=== PATIENT | female | born 1935 | race Caucasian/White ===

== ENCOUNTER 2021-02-11 20:15 | Emergency (ER) | payer MEDICARE ==
--- NOTE | 2021-02-11 20:34 | ERPHSYRPT ---
- History of Present Illness Time Seen by Provider: 02/11/21 20:34 Allergies/Adverse Reactions: orlistat Allergy (Unknown, Verified 03/08/21 00:51) pentazocine Allergy (Unknown, Verified 03/08/21 00:51) tolmetin Allergy (Unknown, Verified 03/08/21 00:51) Home Medications: Acetaminophen 325 mg [Tylenol 325 mg] 650 mg PO Q4H PRN PRN 03/07/21 [History] Albuterol/Ipratropium 3ml Neb* [DUONEB 0.5-3 MG/3 ml Neb] 3 ml IH Q6H PRN PRN 03/07/21 [History] Atorvastatin Calcium [Lipitor] 20 mg PO HS 03/07/21 [History] Collagenase Oint [Santyl OINTMENT] 1 gm TOP DAILY 03/07/21 [History] Docusate Sodium 100 mg [Colace 100 MG] 100 mg PO BIDPRN PRN 03/07/21 [History] Famotidine [Pepcid] 40 mg PO HS 03/07/21 [History] Furosemide 40 mg [Lasix 40 MG] 40 mg PO BID 03/07/21 [History] Gabapentin 300 mg [Neurontin 300 mg] 300 mg PO HS 03/07/21 [History] Levothyroxine Sodium 175 mcg PO DAILY 03/07/21 [History] Lisinopril 5 mg [Zestril 5 MG] 5 mg PO DAILY 03/07/21 [History] Metoprolol Succinate 25 mg Xl* [Toprol-Xl 25MG Tablets] 25 mg PO BID 03/07/21 [History] Neomy Sulf/Bacitra/Polymyxin * [Triple Antibiotic Ointment] 1 gm TOP DAILY 03/07/21 [History] Sertraline HCl 25 mg PO HS 03/07/21 [History] Sodium Hypochlorite [Dakin's] 1 applic TOP DAILY 03/07/21 [History] Sulfamethoxazole/Trimethoprim [Sulfamethoxazole-Tmp Ds Tablet] 1 each PO BID 03/07/21 [History] Warfarin Sodium 2 mg PO DAILY 03/07/21 [History] dilTIAZem HCL [Diltiazem 24Hr ER (Xr)] 240 mg PO DAILY 03/07/21 [History] polyethylene glycoL 3350 [Gavilax] 17 gm PO DAILY PRN PRN 03/07/21 [History] - Departure Referrals: ANNE SILVA MD [Primary Care Provider] -
== END 2021-02-11 21:20 | disposition left against medical advice (07) ==
LOC: ED 20:15
DX: Z53.9 Procedure and treatment not carried out, unspecified reason (principal)

== ENCOUNTER 2021-02-12 14:17 | Emergency (ER) | payer MEDICARE, OTHER ==
[2021-02-12] MEDS ORDERED: Sodium Chloride 0.9% 1000 ML 1,000 ML IV SCH (14:30)
[2021-02-12 14:52] LABS: Absolute Neutrophil Ct (ANC) 14.01 (1.4-6.9); BASOPHIL % 0.1 % (0.0-0.4); Basophil (Absolute #) 0.02 (0-0.4); Eosinophil (Absolute #) 0 (0-0.5); Hematocrit 42.6 % (35-47); Hemoglobin 13.3 gm/dl (12.0-16.0); Lymphocyte (Absolute #) 0.57 (1.0-4.6); Lymphocytes % 3.6 % (24.0-44.0); Mean Cell Volume 93.4 fl (78-100); Mean Corpuscular Hemoglobin 29.2 pg (26-32); Mean Corpuscular Hgb Concent. 31.2 g/dl (32-36); Mean Platelet Volume 10.5 fl (7.5-11.0); Monocytes % 8.2 % (0.0-12.0); Neutrophil % 88.1 % (36.0-66.0); Platelet Count 275 K/mm3 (150-450); Red Blood Count 4.56 M/mm3 (4.1-5.4); Red Cell Distribution Width 13.2 % (11.5-14.0); White Blood Count 15.9 K/mm3 (4.0-10.5)
[2021-02-12 15:06] LABS: INR 3.9 (0.8-3.0)
[2021-02-12 15:11] LABS: ALKALINE PHOSPHATASE 113 U/L (38-126); ANION GAP 13.4 MEQ/L (5-15); BLOOD UREA NITROGEN 30 mg/dL (7-17); CHLORIDE 94 mmol/L (98-107); Calcium 11.1 mg/dL (8.4-10.2); Carbon Dioxide 28 mmol/L (22-30); Creatinine 1 0.58 mg/dL (0.52-1.04); EST GLOMERULAR FILTRATION RATE > 60.0 ML/MIN; Glucose 271 mg/dL (74-106); LIPASE 36 U/L (23-300); Potassium 4.6 mmol/L (3.5-5.1); SGOT/AST 26 U/L (14-36); SGPT/ALT 23 U/L (0-35); SODIUM 131 mmol/L (137-145); Total Protein 7.2 g/dL (6.3-8.2)
--- NOTE | 2021-02-12 15:20 | XRAY ---
Indication: Confusion. Altered mental status. Multiple contiguous axial images obtained through the head without contrast. Comparison: None Age-appropriate global atrophy and minimal periventricular degenerative micro-ischemia bilaterally. No acute intracranial hemorrhage, abnormal extra-axial fluid collection, or mass effect. Fourth ventricle is midline without hydrocephalus. Bony calvarium intact. Paranasal sinuses and mastoid air cells are clear. Impression: Nonacute senile brain.
--- NOTE | 2021-02-12 15:25 | XRAY ---
Indication: Confusion. Altered mental status. Comparison: None Portable chest underinflated with left base infiltrate/atelectasis/effusion and cardiomegaly concerning for cardiac decompensation/CHF. Incidental right base subsegmental atelectasis/scarring, osteopenia, marked degenerative changes both shoulders, and incompletely visualized thoracolumbar fusion hardware.
[2021-02-12] MEDS ORDERED: Zithromax 500 MG/ 250 ML NaCl Premix 500 MG/250 ML IVPB IV STA (15:48)
[2021-02-12] MEDS ORDERED: ROCEPHIN 2 Gm-D5w 50ML BAG** 2 G/50 ML IVPB IV STA (15:48)
[2021-02-12] MEDS ORDERED: Zithromax 500 MG/ 250 ML NaCl Premix 500 MG/250 ML IVPB IV ONE (16:04)
[2021-02-12] MEDS ORDERED: ROCEPHIN 2 Gm-D5w 50ML BAG** 2 G/50 ML IVPB IV ONE (16:04)
--- NOTE | 2021-02-12 16:10 | ERPHSYRPT ---
- History of Present Illness Time Seen by Provider: 02/12/21 14:21 Source: patient Exam Limitations: no limitations, clinical condition Patient Subjective Stated Complaint: PT HERE FOR CONFUSION, SHE WAS FOUND CONFUSED BY HER HOME HEALTH CARE NURSE,SHE STATES SHE JUST DOES NOT FEEL WELL Triage Nursing Assessment: PT ALERT, AND MOANS OUT IN PAIN WHEN YOU TOUCH HER, SHE HAS DRESSED WOUNDS TO RIGHT LEG AND BACK, SHE IS ALERT TO HER NAME AND B.D BUT CONFUSED TO DATE AND TIME, PT DENIES ANY INJURY, HER COUMADIN IS ON HOLD FOR A HIGH INR OF 3.7 Physician History: 85 years old female with history of atrial fibrillation on Coumadin/Cardizem, diabetes mellitus, hypothyroidism, hypertension presented in the ER with chief complaint of altered mental status and not acting herself since yesterday and is progressively worsening. Patient is baseline awake alert and oriented x4. On presentation patient is able to tell her name and date of and not more than that. She denies having pain anywhere. Not in any distress. No vomiting or diarrhea reported. No cough fever or chills reported. History is limited. Timing/Duration: yesterday, gradual onset, worse Severity: moderate Modifying Factors: Improves With: nothing Associated Symptoms: denies symptoms Allergies/Adverse Reactions: pentazocine Allergy (Verified 02/12/21 14:36) tolmetin Allergy (Verified 02/12/21 14:36) Travel Risk - International Travel Have you traveled outside of the country in past 3 weeks: No - Coronavirus Screening Are you exhibiting any of the following symptoms?: No - Vaccine Status Have you recieved a Covid-19 vaccination: Yes Shot Coat Tender: Unknown - Vaccination Dates Date of 2cond Vaccination (if applicable): ? Dates if Unknown: ? - Review of Systems All Other Systems: Unable due to condition - Past Medical History Pertinent Past Medical History: Yes Cardiac History: Arrhythmia, Coronary Artery Disease, Hypertension Endocrine Medical History: Diabetes Type II, Hypothyroidism - Past Surgical History Past Surgical History: Yes Musculoskeletal: Orthopedic Surgery Female Surgical History: Hysterectomy Other Surgical History: HIP RPLECED, KNEE REPLACED - Social History Smoking Status: Former smoker Exposure to second hand smoke: No Drug Use: none Patient Lives Alone: Yes - Female History Hx Last Menstrual Period: POST - Nursing Vital Signs Nursing Vital Signs: Initial Vital Signs Temperature 98.4 F 02/12/21 14:22 Pulse Rate 62 02/12/21 14:22 Respiratory Rate 20 02/12/21 14:22 Blood Pressure 124/55 02/12/21 14:22 O2 Sat by Pulse Oximetry 96 02/12/21 14:22 Pain Scale Pain Intensity 4 - Physical Exam General Appearance: no apparent distress, alert Eye Exam: PERRL/EOMI, eyes nml inspection Ears, Nose, Throat Exam: normal ENT inspection, TMs normal, pharynx normal, moist mucous membranes Neck Exam: normal inspection, supple, full range of motion Respiratory Exam: diminished breath sounds, crackles/rales, rhonchi, wheezing, No accessory muscle use Cardiovascular Exam: tachycardia, irregular Gastrointestinal/Abdomen Exam: soft, normal bowel sounds, No tenderness Back Exam: other (Pressure ulcers) Extremity Exam: normal inspection, normal range of motion, other (Wound covered with dressing) Neurologic Exam: alert, cooperative, 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, No oriented x 3, No normal mood/affect Skin Exam: normal color SpO2 Interpretation: normal SpO2: 96 O2 Delivery: Room Air - Course EKG Interpreted by Me: RATE ([id number]), A-fib, NORMAL AXIS, NORMAL INTERVALS, Non- specific ST Changes Ordered Tests: Active Orders 24 hr Category Date Time Status EKG-ER Only STAT Care 02/12/21 14:21 Active Rick [Catheter-[place] Rick] STAT Care 02/12/21 16:41 Active IV Insertion STAT Care 02/12/21 14:21 Active IV Insertion-2nd Peripheral STAT Care 02/12/21 16:22 Active NPO (ED) STAT Care 02/12/21 14:21 Active CHEST 1 VIEW (PORTABLE) Stat Exams 02/12/21 14:22 Completed HEAD WITHOUT CONTRAST [CT] Stat Exams 02/12/21 14:23 Completed BLOOD CULTURE Stat Lab 02/12/21 14:43 Received CBC W DIFF Stat Lab 02/12/21 14:21 Completed CK-Creatinine Phosphokinase Stat Lab 02/12/21 14:43 Completed CMP Stat Lab 02/12/21 14:43 Completed CULTURE,URINE Stat Lab 02/12/21 16:42 Received LIPASE Stat Lab 02/12/21 14:43 Completed Lactic Acid Stat Lab 02/12/21 14:40 Completed Lactic Acid Stat Lab 02/12/21 16:48 Received MAGNESIUM Stat Lab 02/12/21 14:43 Completed NT PRO BNP Stat Lab 02/12/21 14:43 Completed PROTIME WITH INR Stat Lab 02/12/21 14:43 Completed TROPONIN Q3H Lab 02/12/21 14:43 Completed TROPONIN Q3H Lab 02/12/21 17:30 Completed TROPONIN Q3H Lab 02/12/21 20:30 Ordered TROPONIN Q3H Lab 02/12/21 23:30 Ordered TROPONIN Q3H Lab 02/13/21 02:30 Ordered UA W/RFX UR CULTURE Stat Lab 02/12/21 16:42 Completed Transfer Order Routine Transfer 02/12/21 Ordered Medication Summary Generic Name Dose Route Start Last Admin Trade Name Freq PRN Reason Stop Dose Admin Sodium Chloride 1,000 mls @ 100 mls/hr 02/12/21 14:30 02/12/21 15:17 Sodium Chloride 0.9% 1000 Ml IV 03/14/21 14:29 100 mls/hr .Q10H VIVI Administration Diltiazem HCl 100 mls @ 5 mls/hr 02/12/21 16:14 02/12/21 16:31 Cardizem Drip 100 Mg/100 Ml D5w IV 03/14/21 16:13 5 mg/hr .Q20H PRN 5 mls/hr HEART RATE/ A-FIB Administration Protocol 5 MG/HR Discontinued Medications Generic Name Dose Route Start Last Admin Trade Name Freq PRN Reason Stop Dose Admin Ceftriaxone Sodium/Dextrose 2 g in 50 mls @ 100 mls/hr 02/12/21 15:48 02/12/21 16:42 Rocephin 2 Gm-D5w 50ml Bag IV 02/12/21 16:17 Infused STAT STA Infusion Azithromycin 500 mg in 250 mls @ 250 mls/hr 02/12/21 15:48 02/12/21 17:13 Zithromax 500 Mg/ 250 Ml Nacl Premix IV 02/12/21 16:47 Infused STAT STA Infusion Azithromycin Confirm 02/12/21 16:04 Zithromax 500 Mg/ 250 Ml Nacl Premix Administered 02/12/21 16:05 Dose 500 mg in 250 mls @ ud IV .STK-MED ONE Ceftriaxone Sodium/Dextrose Confirm 02/12/21 16:04 Rocephin 2 Gm-D5w 50ml Bag Administered 02/12/21 16:05 Dose 2 g in 50 mls @ ud IV .STK-MED ONE Insulin Human Regular 4 unit 02/12/21 16:13 02/12/21 16:31 Humulin R IV 02/12/21 16:14 4 unit STAT ONE Administration Insulin Human Regular Confirm 02/12/21 16:30 Humulin R Administered 02/12/21 16:31 Dose 4 unit .ROUTE .STK-MED ONE Lab/Rad Data: Laboratory Result Diagrams 02/12/21 14:21 02/12/21 14:43 Laboratory Results 02/12/21 02/12/21 02/12/21 Range/Units 17:49 17:30 16:42 WBC (4.0-10.5) K/mm3 RBC (4.1-5.4) M/mm3 Hgb (12.0-16.0) gm/dl Hct (35-47) % MCV (78-100) fl MCH (26-32) pg MCHC (32-36) g/dl RDW (11.5-14.0) % Plt Count (150-450) K/mm3 MPV (7.5-11.0) fl Gran % (36.0-66.0) % Eos # (Auto) (0-0.5) Absolute Lymphs (auto) (1.0-4.6) Absolute Monos (auto) (0.0-1.3) Lymphocytes % (24.0-44.0) % Monocytes % (0.0-12.0) % Eosinophils % (0.00-5.0) % Basophils % (0.0-0.4) % Absolute Granulocytes (1.4-6.9) Basophils # (0-0.4) PT (9.4-12.5) SECONDS INR (0.8-3.0) Sodium (137-145) mmol/L Potassium (3.5-5.1) mmol/L Chloride (98-107) mmol/L Carbon Dioxide (22-30) mmol/L Anion Gap (5-15) MEQ/L BUN (7-17) mg/dL Creatinine (0.52-1.04) mg/dL Estimated GFR ML/MIN Glucose (74-106) mg/dL Lactic Acid (0.4-2.0) Calcium (8.4-10.2) mg/dL Magnesium (1.6-2.3) mg/dL Total Bilirubin (0.2-1.3) mg/dL AST (14-36) U/L ALT (0-35) U/L Alkaline Phosphatase (38-126) U/L Creatine Kinase (30-135) U/L Troponin I < 0.012 (0.000-0.034) ng/mL NT-Pro-B Natriuret Pep (0-1800) pg/mL Serum Total Protein (6.3-8.2) g/dL Albumin (3.5-5.0) g/dL Lipase (23-300) U/L Urine Color MARYAN (YELLOW) Urine Appearance SLIGHTLY CLOUDY (CLEAR) Urine pH 6.0 (5-6) Ur Specific [place] 1.023 (1.005-1.025) Urine Protein 100 (Negative) Urine Ketones TRACE (NEGATIVE) Urine Blood MODERATE (0-5) Cosme/ul Urine Nitrite NEGATIVE (NEGATIVE) Urine Bilirubin NEGATIVE (NEGATIVE) Urine Urobilinogen 2 (0-1) mg/dL Ur Leukocyte Esterase NEGATIVE (NEGATIVE) Urine WBC (Auto) 3-5 (0-5) /HPF Urine RBC (Auto) 16-25 (0-2) /HPF U Epithel Cells (Auto) NONE (FEW) /HPF Urine Bacteria (Auto) NONE SEEN (NEGATIVE) /HPF Urine Mucus (Auto) MODERATE (NEGATIVE) /HPF Urine Culture Reflexed YES (NO) Urine Glucose 150 (NEGATIVE) mg/dL SARS-CoV-2 (PCR) NEGATIVE (NEGATIVE) 02/12/21 02/12/21 02/12/21 Range/Units 14:43 14:43 14:43 WBC (4.0-10.5) K/mm3 RBC (4.1-5.4) M/mm3 Hgb (12.0-16.0) gm/dl Hct (35-47) % MCV (78-100) fl MCH (26-32) pg MCHC (32-36) g/dl RDW (11.5-14.0) % Plt Count (150-450) K/mm3 MPV (7.5-11.0) fl Gran % (36.0-66.0) % Eos # (Auto) (0-0.5) Absolute Lymphs (auto) (1.0-4.6) Absolute Monos (auto) (0.0-1.3) Lymphocytes % (24.0-44.0) % Monocytes % (0.0-12.0) % Eosinophils % (0.00-5.0) % Basophils % (0.0-0.4) % Absolute Granulocytes (1.4-6.9) Basophils # (0-0.4) PT 46.0 H (9.4-12.5) SECONDS INR 3.90 H (0.8-3.0) Sodium 131 L (137-145) mmol/L Potassium 4.6 (3.5-5.1) mmol/L Chloride 94 L (98-107) mmol/L Carbon Dioxide 28 (22-30) mmol/L Anion Gap 13.4 (5-15) MEQ/L BUN 30 H (7-17) mg/dL Creatinine 0.58 (0.52-1.04) mg/dL Estimated GFR > 60.0 ML/MIN Glucose 271 H (74-106) mg/dL Lactic Acid (0.4-2.0) Calcium 11.1 H (8.4-10.2) mg/dL Magnesium 2.0 (1.6-2.3) mg/dL Total Bilirubin 0.60 (0.2-1.3) mg/dL AST 26 (14-36) U/L ALT 23 (0-35) U/L Alkaline Phosphatase 113 (38-126) U/L Creatine Kinase 63 (30-135) U/L Troponin I < 0.012 (0.000-0.034) ng/mL NT-Pro-B Natriuret Pep 2370 H (0-1800) pg/mL Serum Total Protein 7.2 (6.3-8.2) g/dL Albumin 4.0 (3.5-5.0) g/dL Lipase 36 (23-300) U/L Urine Color (YELLOW) Urine Appearance (CLEAR) Urine pH (5-6) Ur Specific [place] (1.005-1.025) Urine Protein (Negative) Urine Ketones (NEGATIVE) Urine Blood (0-5) Cosme/ul Urine Nitrite (NEGATIVE) Urine Bilirubin (NEGATIVE) Urine Urobilinogen (0-1) mg/dL Ur Leukocyte Esterase (NEGATIVE) Urine WBC (Auto) (0-5) /HPF Urine RBC (Auto) (0-2) /HPF U Epithel Cells (Auto) (FEW) /HPF Urine Bacteria (Auto) (NEGATIVE) /HPF Urine Mucus (Auto) (NEGATIVE) /HPF Urine Culture Reflexed (NO) Urine Glucose (NEGATIVE) mg/dL SARS-CoV-2 (PCR) (NEGATIVE) 02/12/21 02/12/21 Range/Units 14:40 14:21 WBC 15.9 H (4.0-10.5) K/mm3 RBC 4.56 (4.1-5.4) M/mm3 Hgb 13.3 (12.0-16.0) gm/dl Hct 42.6 (35-47) % MCV 93.4 (78-100) fl MCH 29.2 (26-32) pg MCHC 31.2 L (32-36) g/dl RDW 13.2 (11.5-14.0) % Plt Count 275 (150-450) K/mm3 MPV 10.5 (7.5-11.0) fl Gran % 88.1 H (36.0-66.0) % Eos # (Auto) 0 (0-0.5) Absolute Lymphs (auto) 0.57 L (1.0-4.6) Absolute Monos (auto) 1.30 (0.0-1.3) Lymphocytes % 3.6 L (24.0-44.0) % Monocytes % 8.2 (0.0-12.0) % Eosinophils % 0.0 (0.00-5.0) % Basophils % 0.1 (0.0-0.4) % Absolute Granulocytes 14.01 H (1.4-6.9) Basophils # 0.02 (0-0.4) PT (9.4-12.5) SECONDS INR (0.8-3.0) Sodium (137-145) mmol/L Potassium (3.5-5.1) mmol/L Chloride (98-107) mmol/L Carbon Dioxide (22-30) mmol/L Anion Gap (5-15) MEQ/L BUN (7-17) mg/dL Creatinine (0.52-1.04) mg/dL Estimated GFR ML/MIN Glucose (74-106) mg/dL Lactic Acid 2.4 H (0.4-2.0) Calcium (8.4-10.2) mg/dL Magnesium (1.6-2.3) mg/dL Total Bilirubin (0.2-1.3) mg/dL AST (14-36) U/L ALT (0-35) U/L Alkaline Phosphatase (38-126) U/L Creatine Kinase (30-135) U/L Troponin I (0.000-0.034) ng/mL NT-Pro-B Natriuret Pep (0-1800) pg/mL Serum Total Protein (6.3-8.2) g/dL Albumin (3.5-5.0) g/dL Lipase (23-300) U/L Urine Color (YELLOW) Urine Appearance (CLEAR) Urine pH (5-6) Ur Specific [place] (1.005-1.025) Urine Protein (Negative) Urine Ketones (NEGATIVE) Urine Blood (0-5) Cosme/ul Urine Nitrite (NEGATIVE) Urine Bilirubin (NEGATIVE) Urine Urobilinogen (0-1) mg/dL Ur Leukocyte Esterase (NEGATIVE) Urine WBC (Auto) (0-5) /HPF Urine RBC (Auto) (0-2) /HPF U Epithel Cells (Auto) (FEW) /HPF Urine Bacteria (Auto) (NEGATIVE) /HPF Urine Mucus (Auto) (NEGATIVE) /HPF Urine Culture Reflexed (NO) Urine Glucose (NEGATIVE) mg/dL SARS-CoV-2 (PCR) (NEGATIVE) - Progress Progress: unchanged Progress Note: 02/12/21 16:53 85 years old is evaluated for altered mental status. Patient does not tachypneic but tachycardic with A. fib RVR and mildly supratherapeutic INR. I have obtained CT head which is negative for any intracranial bleed, midline shift or mass-effect. Chest x-ray showed some infiltrative process versus CHF but patient does not seem clinically in CHF. She is maintaining oxygen satura tion at room air. She is given a dose of antibiotics. Blood cultures are pending. She is started on Cardizem drip for A. fib RVR. White count is elevated, chemistry profile consistent with mild dehydration and will gently hydrate her. Urinalysis is pending but it would be covered if she has UTI with Rocephin. Discussed with Dr. Silva, reviewed history, work-up and patient is being admitted to ICU. 02/12/21 20:47 Patient was initially admitted to ICU in here but later on it was found out that no ICU bed is available and recommended transfer. I have called transfer center [facility]. 02/12/21 21:[address] Dhaval Garcia hospitalist at [facility], reviewed history, work-up and current management, agreed with transfer. Discussed with : Alex Will see patient in: hospital (observation) Counseled pt/family regarding: lab results, diagnosis, rad results - Departure Departure Disposition: Transfer Clinical Impression: Atrial fibrillation with RVR, Elevated INR, Hyperglycemia Pneumonia Qualifiers: Pneumonia type: due to unspecified organism Laterality: unspecified laterality Lung location: unspecified part of lung Qualified Code(s): J18.9 - Pneumonia, unspecified organism Altered mental status Qualifiers: Altered mental status type: unspecified Qualified Code(s): R41.82 - Altered mental status, unspecified Condition: Stable Critical Care Time: Yes Critical Care Time(excluding separately billable procedures): Critical 30-74 mins Referrals: ANNE SILVA MD [Primary Care Provider] -
[2021-02-12] MEDS ORDERED: HUMULIN R IV ONE (16:13)
[2021-02-12] MEDS ORDERED: CARDIZEM DRIP 100 MG/100 ML D5W 100 ML IV PRN (16:14)
[2021-02-12] MEDS ORDERED: HUMULIN R ONE (16:30)
[2021-02-12] MEDS ORDERED: CARDIZEM DRIP 100 MG/100 ML D5W 100 ML IV ONE (16:30)
[2021-02-12 17:10] LABS: CK-Creatinine Phosphokinase 63 U/L (30-135); NT PRO BNP 2370 pg/mL (0-1800)
[2021-02-12 17:25] LABS: Appearance SLIGHTLY CLOUDY (CLEAR); Bilirubin NEGATIVE (NEGATIVE); Blood MODERATE Ery/ul (0-5); Glucose 150 mg/dL (NEGATIVE); Ketones TRACE (NEGATIVE); Leukocyte Esterase NEGATIVE (NEGATIVE); Mucus MODERATE /HPF (NEGATIVE); Nitrite NEGATIVE (NEGATIVE); Protein,Urine Dip 100 (Negative); Specific Gravity 1.023 (1.005-1.025); Urobilinogen 2 mg/dL (0-1)
[2021-02-12 17:26] LABS: Bacteria NONE SEEN /HPF (NEGATIVE)
[2021-02-12 22:08] VITALS: BP 124/71; PULSE 108; O2SAT 97
== END 2021-02-12 22:36 | disposition short-term general hospital (02) ==
LOC: ED 14:17
DX: I48.20 Chronic atrial fibrillation, unspecified (principal); R73.9 Hyperglycemia, unspecified; R97.1 Elevated cancer antigen 125 [CA 125]; Z79.891 Long term (current) use of opiate analgesic
CPT/HCPCS: 36000; 36415; 51702; 70450; 71045; 80053; 81001; 82550; 83605; 83690; 83735; 83880; 84484; 85025; 85610; 87040; 87077; 87086; 87186; 93005; 96365; 96367; 96374; 99285; 99291; U0003; J0456; J0696; J1815

== ENCOUNTER 2021-03-07 19:52 | Inpatient (IN) | payer MEDICARE, OTHER ==
--- NOTE | 2021-03-07 19:59 | ERPHSYRPT ---
- History of Present Illness Time Seen by Provider: 03/07/21 19:58 Source: patient, EMS, prison records, old records Exam Limitations: clinical condition Physician History: This is an 85-year-old white female patient who is a resident at [facility] and brought in by EMS to our emergency department because of dark stools that were noticed today. The patient has a history of chronic atrial fibrillation and is taking Coumadin and Cardizem for this. She also has diabetes, hypothyroidism, hypertension, coronary artery disease and dementia. On 02/12/2021, the patient's hemoglobin was 13.3. A repeat hemoglobin on 03/03/2021 was 11.5. Again, today the prison noticed dark stools. There is been no nausea or vomiting. Patient denies chest pain. Patient denies shortness of breath. On arrival, patient's heart rate is in the 60s and her systolic blood pressure is 97. Patient's niece is her medical power of cane piler and they are okay receiving blood products if necessary. If the patient is admitted to the hospital, the patient is a DNR. Timing/Duration: today Severity: mild (To moderate) Associated Symptoms: weakness, No nausea, No vomiting, No abdominal pain, No shortness of breath, No syncope Allergies/Adverse Reactions: orlistat Allergy (Unknown, Verified 03/07/21 20:30) pentazocine Allergy (Unknown, Verified 03/07/21 20:30) tolmetin Allergy (Unknown, Verified 03/07/21 20:30) Home Medications: Arginine/Ascorbate Sod/Roman AC [Arginaid Powder] 1 each PO BID 03/07/21 [History] Multivit,Calc,Mins/Iron/Folic [Therems-M Tablet] 1 each PO DAILY 03/07/21 [History] Sulfamethoxazole/Trimethoprim [Sulfamethoxazole-Tmp Ds Tablet] 1 each PO BID 03/07/21 [History] Warfarin Sodium 2 mg PO DAILY 03/07/21 [History] Travel Risk - International Travel Have you traveled outside of the country in past 3 weeks: No - Coronavirus Screening Are you exhibiting any of the following symptoms?: No Close contact with a COVID-19 positive Pt in past 14-21 Days: No - Vaccine Status Have you recieved a Covid-19 vaccination: Yes Mold Swabber: Unknown - Vaccination Dates Date of 2cond Vaccination (if applicable): ? Dates if Unknown: ? - Review of Systems Constitutional: Weakness Eyes: No Symptoms Ears, Nose, & Throat: No Symptoms Respiratory: No Symptoms Cardiac: No Symptoms Abdominal/Gastrointestinal: No Symptoms Genitourinary Symptoms: No Symptoms Musculoskeletal: No Symptoms Skin: No Symptoms Neurological: No Symptoms Psychological: No Symptoms Endocrine: No Symptoms Hematologic/Lymphatic: No Symptoms Immunological/Allergic: No Symptoms All Other Systems: Reviewed and Negative - Past Medical History Pertinent Past Medical History: Yes Cardiac History: Arrhythmia, Coronary Artery Disease, Hypertension Endocrine Medical History: Diabetes Type II, Hypothyroidism - Past Surgical History Past Surgical History: Yes Musculoskeletal: Orthopedic Surgery Female Surgical History: Hysterectomy Other Surgical History: HIP RPLECED, KNEE REPLACED - Social History Smoking Status: Former smoker Exposure to second hand smoke: No Drug Use: none Patient Lives Alone: Yes - Nursing Vital Signs Nursing Vital Signs: Initial Vital Signs Temperature 97.0 F 03/07/21 20:06 Pulse Rate 66 03/07/21 20:06 Respiratory Rate 16 03/07/21 20:06 Blood Pressure 97/58 03/07/21 20:06 O2 Sat by Pulse Oximetry 97 03/07/21 20:06 Pain Scale Pain Intensity 0 - Physical Exam General Appearance: no apparent distress, alert, lethargy Eye Exam: PERRL/EOMI, pale conjunctivae Ears, Nose, Throat Exam: TMs normal, dry mucous membranes Neck Exam: normal inspection, non-tender, supple, full range of motion Respiratory Exam: normal breath sounds, lungs clear, airway intact, No chest tenderness, No respiratory distress Cardiovascular Exam: normal peripheral pulses, irregular Gastrointestinal/Abdomen Exam: soft, normal bowel sounds, No tenderness Pelvic Exam: not done Rectal Exam: not done Back Exam: normal inspection, normal range of motion, No CVA tenderness, No vertebral tenderness Extremity Exam: normal inspection, normal range of motion, pelvis stable Neurologic Exam: alert, oriented x 3, cooperative, gunner's mate m II-XII nml as tested, normal mood/affect, nml cerebellar function, nml station & gait, sensation nml Skin Exam: pale Lymphatic Exam: No adenopathy SpO2 Interpretation: normal O2 Delivery: Room Air - Course Nursing assessment & vital signs reviewed: Yes EKG Interpreted by Me: RATE (63), A-fib, NORMAL AXIS, Other (No acute ischemic changes on today's EKG. When compared to EKG dated 02/12/2021, there is resolution of PVCs on today's EKG.) Ordered Tests: Active Orders 24 hr Category Date Time Status EKG-ER Only STAT Care 03/07/21 20:06 Active IV Insertion STAT Care 03/07/21 20:06 Active CBC W DIFF Stat Lab 03/07/21 20:13 Completed CMP Stat Lab 03/07/21 20:13 Completed CULTURE,URINE Stat Lab 03/07/21 21:25 Received Lactic Acid Stat Lab 03/07/21 20:06 Completed Manual Differential NC Stat Lab 03/07/21 20:13 Completed PROTIME WITH INR Stat Lab 03/07/21 20:13 Completed UA W/RFX UR CULTURE Stat Lab 03/07/21 21:25 Completed Transfer Order Routine Transfer 03/07/21 Ordered Medication Summary Generic Name Dose Route Start Last Admin Trade Name Freq PRN Reason Stop Dose Admin Ceftriaxone Sodium/Dextrose 1 g in 50 mls @ 100 mls/hr 03/07/21 21:47 Rocephin 1 Gm-D5w 50 Ml Bag IV 03/07/21 22:16 STAT STA Discontinued Medications Generic Name Dose Route Start Last Admin Trade Name Freq PRN Reason Stop Dose Admin Phytonadione 10 mg 03/07/21 20:45 03/07/21 21:11 Vitamin K 10 Mg/Ml IM 03/07/21 20:46 10 mg STAT ONE Administration Phytonadione Confirm 03/07/21 21:09 Vitamin K 10 Mg/Ml Administered 03/07/21 21:10 Dose 10 mg .ROUTE .K-MED ONE Lab/Rad Data: Laboratory Result Diagrams 03/07/21 20:13 03/07/21 20:13 Laboratory Results 03/07/21 03/07/21 03/07/21 Range/Units 21:25 20:54 20:13 WBC (4.0-10.5) K/mm3 RBC (4.1-5.4) M/mm3 Hgb (12.0-16.0) gm/dl Hct (35-47) % MCV (78-100) fl MCH (26-32) pg MCHC (32-36) g/dl RDW (11.5-14.0) % Plt Count (150-450) K/mm3 MPV (7.5-11.0) fl Segmented Neutrophils (36.0-66.0) % Band Neutrophils (0.0-2.0) % Lymphocytes (Manual) (24-44) % Monocytes (Manual) (0.0-12.0) % Platelet Estimate (NORMAL) RBC Morphology PT 98.1 H (9.4-12.5) SECONDS INR 8.30 H* (0.8-3.0) Sodium (137-145) mmol/L Potassium (3.5-5.1) mmol/L Chloride (98-107) mmol/L Carbon Dioxide (22-30) mmol/L Anion Gap (5-15) MEQ/L BUN (7-17) mg/dL Creatinine (0.52-1.04) mg/dL Estimated GFR ML/MIN Glucose (74-106) mg/dL Lactic Acid (0.4-2.0) Calcium (8.4-10.2) mg/dL Total Bilirubin (0.2-1.3) mg/dL AST (14-36) U/L ALT (0-35) U/L Alkaline Phosphatase (38-126) U/L Serum Total Protein (6.3-8.2) g/dL Albumin (3.5-5.0) g/dL Urine Color YELLOW (YELLOW) Urine Appearance SLIGHTLY CLOUDY (CLEAR) Urine pH 5.0 (5-6) Ur Specific [place] 1.011 (1.005-1.025) Urine Protein NEGATIVE (Negative) Urine Ketones NEGATIVE (NEGATIVE) Urine Blood SMALL (0-5) Cosme/ul Urine Nitrite NEGATIVE (NEGATIVE) Urine Bilirubin NEGATIVE (NEGATIVE) Urine Urobilinogen NEGATIVE (0-1) mg/dL Ur Leukocyte Esterase NEGATIVE (NEGATIVE) Urine WBC (Auto) 11-15 (0-5) /HPF Urine RBC (Auto) 51-100 (0-2) /HPF U Hyaline Cast (Auto) 6-10 (0-2) /LPF U Epithel Cells (Auto) RARE (FEW) /HPF Urine Bacteria (Auto) RARE (NEGATIVE) /HPF Calcium Oxalate Crystal 6-10 (NEGATIVE) /HPF Urine Mucus (Auto) SLIGHT (NEGATIVE) /HPF Urine Culture Reflexed YES (NO) Urine Glucose NEGATIVE (NEGATIVE) mg/dL ABO Group B Rh Factor POSITIVE Antibody Screen NEGATIVE (NEGATIVE) Crossmatch Pending 03/07/21 03/07/21 03/07/21 Range/Units 20:13 20:13 20:06 WBC 12.5 H (4.0-10.5) K/mm3 RBC 3.75 L (4.1-5.4) M/mm3 Hgb 10.6 L (12.0-16.0) gm/dl Hct 33.0 L (35-47) % MCV 88.0 (78-100) fl MCH 28.3 (26-32) pg MCHC 32.1 (32-36) g/dl RDW 14.0 (11.5-14.0) % Plt Count 453 H (150-450) K/mm3 MPV 9.8 (7.5-11.0) fl Segmented Neutrophils 87 H (36.0-66.0) % Band Neutrophils 3 H (0.0-2.0) % Lymphocytes (Manual) 9 L (24-44) % Monocytes (Manual) 1 (0.0-12.0) % Platelet Estimate NORMAL (NORMAL) RBC Morphology NORMAL PT (9.4-12.5) SECONDS INR (0.8-3.0) Sodium 123 L (137-145) mmol/L Potassium 4.8 (3.5-5.1) mmol/L Chloride 86 L (98-107) mmol/L Carbon Dioxide 21 L (22-30) mmol/L Anion Gap 20.7 H (5-15) MEQ/L BUN 107 H (7-17) mg/dL Creatinine 5.43 H (0.52-1.04) mg/dL Estimated GFR 8.0 ML/MIN Glucose 103 (74-106) mg/dL Lactic Acid 2.0 (0.4-2.0) Calcium 9.3 (8.4-10.2) mg/dL Total Bilirubin 0.20 (0.2-1.3) mg/dL AST 35 (14-36) U/L ALT 20 (0-35) U/L Alkaline Phosphatase 119 (38-126) U/L Serum Total Protein 6.5 (6.3-8.2) g/dL Albumin 2.9 L (3.5-5.0) g/dL Urine Color (YELLOW) Urine Appearance (CLEAR) Urine pH (5-6) Ur Specific [place] (1.005-1.025) Urine Protein (Negative) Urine Ketones (NEGATIVE) Urine Blood (0-5) Cosme/ul Urine Nitrite (NEGATIVE) Urine Bilirubin (NEGATIVE) Urine Urobilinogen (0-1) mg/dL Ur Leukocyte Esterase (NEGATIVE) Urine WBC (Auto) (0-5) /HPF Urine RBC (Auto) (0-2) /HPF U Hyaline Cast (Auto) (0-2) /LPF U Epithel Cells (Auto) (FEW) /HPF Urine Bacteria (Auto) (NEGATIVE) /HPF Calcium Oxalate Crystal (NEGATIVE) /HPF Urine Mucus (Auto) (NEGATIVE) /HPF Urine Culture Reflexed (NO) Urine Glucose (NEGATIVE) mg/dL ABO Group Rh Factor Antibody Screen (NEGATIVE) Crossmatch - Progress Progress: improved, re-examined Progress Note: 03/07/21 21:40 Medical decision making: This patient has a slow GI bleed. She is hypotensive and she is passing dark stools. Her INR is 8.3. 2 days ago it was 3.14. We will hold her Coumadin. We will give her a dose of vitamin K. I spoke with Dr. Godoy who is our hospitalist. We will admit her for observation and transfuse 1 unit of packed red blood cells now and hold the second unit. We will repeat labs in the morning. Patient is DNR but family (medical power of cane piler) states that they want to go ahead and give her blood if needed. Patient does have some renal insufficiency that is acute on chronic and I feel this will improve with transfusion of blood products and infusion of crystalloid. Patient also has a urinary tract infection and we will treat this with Rocephin intravenously. Discussed with : Alex Counseled pt/family regarding: lab results, diagnosis, need for follow-up - Departure Departure Disposition: Observation Clinical Impression: Symptomatic anemia, Weakness, Hypotension, UTI (urinary tract infection), Elevated INR, Acute on chronic renal insufficiency Condition: Fair Critical Care Time: Yes Critical Care Time(excluding separately billable procedures): Critical 30-74 mins Referrals: REMIGIO SANDERS [Primary Care Provider] -
[2021-03-07 20:16] LABS: Hemoglobin 10.6 gm/dl (12.0-16.0); Mean Corpuscular Hemoglobin 28.3 pg (26-32); Mean Corpuscular Hgb Concent. 32.1 g/dl (32-36); Mean Platelet Volume 9.8 fl (7.5-11.0); Platelet Count 453 K/mm3 (150-450); Red Blood Count 3.75 M/mm3 (4.1-5.4); White Blood Count 12.5 K/mm3 (4.0-10.5)
[2021-03-07 20:29] LABS: ALBUMIN 2.9 g/dL (3.5-5.0); ANION GAP 20.7 MEQ/L (5-15); BILIRUBIN,TOTAL 0.2 mg/dL (0.2-1.3); Calcium 9.3 mg/dL (8.4-10.2); Potassium 4.8 mmol/L (3.5-5.1); Total Protein 6.5 g/dL (6.3-8.2)
[2021-03-07 20:30] LABS: PROTIME 98.1 SECONDS (9.4-12.5)
[2021-03-07 20:36] LABS: Creatinine 1 5.43 mg/dL (0.52-1.04)
[2021-03-07 20:38] LABS: INR 8.3 (0.8-3.0)
[2021-03-07] MEDS ORDERED: Vitamin K 10 MG/ML IM ONE (20:45)
[2021-03-07] MEDS ORDERED: Vitamin K 10 MG/ML ONE (21:09)
[2021-03-07 21:28] LABS: ABO TYPING B; Antibody Screen NEGATIVE (NEGATIVE); RH TYPING POSITIVE
[2021-03-07 21:33] LABS: BAND 3 % (0.0-2.0); Lymphocytes 9 % (24-44); Monocyte 1 % (0.0-12.0); Neutrophils 87 % (36.0-66.0); Platelet Estimate NORMAL (NORMAL); Total Cells Counted 100
[2021-03-07 21:35] LABS: Appearance SLIGHTLY CLOUDY (CLEAR); Bacteria RARE /HPF (NEGATIVE); Bilirubin NEGATIVE (NEGATIVE); Blood SMALL Ery/ul (0-5); Epithelial Cells RARE /HPF (FEW); Glucose NEGATIVE (NEGATIVE); Ketones NEGATIVE (NEGATIVE); Leukocyte Esterase NEGATIVE (NEGATIVE); Mucus SLIGHT /HPF (NEGATIVE); Nitrite NEGATIVE (NEGATIVE); Protein,Urine Dip NEGATIVE (Negative); RBC 51-100 /HPF (0-2); Specific Gravity 1.011 (1.005-1.025); Urobilinogen NEGATIVE mg/dL (0-1)
[2021-03-07] MEDS ORDERED: ROCEPHIN 1 Gm-D5w 50 ml Bag** 1 G/50 ML IVPB IV STA (21:47)
[2021-03-07] MEDS ORDERED: ROCEPHIN 1 Gm-D5w 50 ml Bag** 1 G/50 ML IVPB IV ONE (22:12)
[2021-03-07 22:45] LABS: CROSS MATCH (PRBC) COMPATIBLE (COMPATIBLE)
[2021-03-07] MEDS ORDERED: Sodium Chloride 0.9% 500 ML 500 ML IV ONE (22:46)
[2021-03-08] MEDS ORDERED: TYLENOL 325 MG PO PRN (00:13)
[2021-03-08] MEDS: Sodium Chloride 0.9% 1000 ML 1,000 ML IV SCH ×3 (01:01→18:41)
[2021-03-08 04:34] LABS: Hematocrit 34.3 % (35-47); Hemoglobin 11.3 gm/dl (12.0-16.0); Mean Cell Volume 87.1 fl (78-100); Mean Corpuscular Hemoglobin 28.7 pg (26-32); Mean Corpuscular Hgb Concent. 32.9 g/dl (32-36); Platelet Count 427 K/mm3 (150-450); Red Blood Count 3.94 M/mm3 (4.1-5.4); Red Cell Distribution Width 14.2 % (11.5-14.0); White Blood Count 10.7 K/mm3 (4.0-10.5)
[2021-03-08 04:36] LABS: ALBUMIN 2.7 g/dL (3.5-5.0); ANION GAP 19.1 MEQ/L (5-15); BILIRUBIN,TOTAL 0.3 mg/dL (0.2-1.3); Calcium 9.1 mg/dL (8.4-10.2); Potassium 4.4 mmol/L (3.5-5.1); Total Protein 6.2 g/dL (6.3-8.2)
[2021-03-08 04:43] LABS: Creatinine 1 5.08 mg/dL (0.52-1.04); EST GLOMERULAR FILTRATION RATE 8.6 ML/MIN
[2021-03-08 04:51] LABS: PROTIME 104.8 SECONDS (9.4-12.5)
[2021-03-08 04:54] LABS: INR 8.88 (0.8-3.0)
[2021-03-08] MEDS ORDERED: Vitamin K 10 MG/ML IM ONE (04:59)
[2021-03-08 06:19] LABS: BAND 2 % (0.0-2.0); Lymphocytes 14 % (24-44); Monocyte 4 % (0.0-12.0); Neutrophils 80 % (36.0-66.0); Total Cells Counted 100
[2021-03-08 06:21] LABS: Platelet Estimate NORMAL (NORMAL)
[2021-03-08] MEDS ORDERED: Dopamine 400 MG/D5W 250ML PREMIX 250 ML IV PRN (06:58)
[2021-03-08] MEDS ORDERED: Dopamine 400 MG/D5W 250ML PREMIX 250 ML IV ONE (07:02)
[2021-03-08] MEDS: PHENYLEPHRINE HCL 10 MG in Dextrose 5%/Water IV Soln. 250 ML 250 ML IV PRN ×4 (08:33→19:13)
[2021-03-08] MEDS ORDERED: Sodium Chloride 0.9% 500 ML 500 ML IV ONE ×3 (08:38→22:15)
[2021-03-08] MEDS: PROTONIX 40 MG IV*** 80 MG in Sodium Chloride 0.9% 500 ML 500 ML IV SCH ×2 (08:40→20:41)
[2021-03-08] MEDS ORDERED: PROTONIX 40 MG IV IV ONE (09:00)
[2021-03-08] MEDS ORDERED: SANDOSTATIN IV SCH (10:00)
[2021-03-08] MEDS ORDERED: SODIUM CHLORIDE 0.9% IV SCH (10:00)
[2021-03-08] MEDS ORDERED: SANDOSTATIN 50MCG/ML IV ONE (10:00)
[2021-03-08 10:05] LABS: PROTIME 97.3 SECONDS (9.4-12.5)
[2021-03-08 10:10] LABS: ANION GAP 16.7 MEQ/L (5-15); Calcium 8.5 mg/dL (8.4-10.2); Potassium 4.4 mmol/L (3.5-5.1)
[2021-03-08 10:16] LABS: Creatinine 1 4.55 mg/dL (0.52-1.04); EST GLOMERULAR FILTRATION RATE 9.8 ML/MIN
[2021-03-08 10:46] LABS: INR 8.33 (0.8-3.0)
[2021-03-08 10:55] LABS: FFP-ORDER READY TO INFUSE
[2021-03-08] MEDS ORDERED: DUONEB 0.5-3 MG/3 ml Neb IH PRN (10:55)
[2021-03-08] MEDS ORDERED: Colace 100 MG PO PRN (10:55)
[2021-03-08] MEDS ORDERED: GAVILAX PO PRN (10:55)
[2021-03-08] MEDS: Santyl OINTMENT TOP SCH (14:39)
[2021-03-08] MEDS: Dakin's Soln FULL STRENGTH TP SCH (14:39)
[2021-03-08] MEDS: Triple Antibiotic Ointment TP SCH (14:40)
[2021-03-08] MEDS: SYNTHROID 88 MCG PO SCH (14:53)
[2021-03-08 16:01] LABS: Hematocrit 26.6 % (35-47); Hemoglobin 8.6 gm/dl (12.0-16.0)
[2021-03-08 16:07] LABS: INR 3.07 (0.8-3.0); PROTIME 36.2 SECONDS (9.4-12.5)
[2021-03-08 16:11] LABS: ANION GAP 15.9 MEQ/L (5-15); Calcium 8.4 mg/dL (8.4-10.2); Potassium 4.3 mmol/L (3.5-5.1)
[2021-03-08 16:17] LABS: Creatinine 1 4.25 mg/dL (0.52-1.04); EST GLOMERULAR FILTRATION RATE 10.6 ML/MIN
[2021-03-08] MEDS ORDERED: Sodium Chloride 0.9% 1000 ML 1,000 ML IV STA (17:15)
[2021-03-08 20:19] LABS: CROSS MATCH (PRBC) COMPATIBLE (COMPATIBLE)
[2021-03-08 21:16] LABS: Hematocrit 24.3 % (35-47); Hemoglobin 7.9 gm/dl (12.0-16.0)
[2021-03-08] MEDS: ROCEPHIN 1 Gm-D5w 50 ml Bag** 1 G/50 ML IVPB IV SCH (21:26)
[2021-03-08] MEDS ORDERED: PHENYLEPHRINE HCL ONE (21:45)
[2021-03-08] MEDS ORDERED: NON-FORMULARY ITEM (Famotidine [Pepcid] 40 MG) PO SCH (22:00)
[2021-03-08] MEDS ORDERED: NON-FORMULARY ITEM (Sertraline Hcl [Sertraline Hcl] 25 MG) PO SCH (22:00)
[2021-03-09 01:56] LABS: Hematocrit 29.7 % (35-47); Hemoglobin 9.5 gm/dl (12.0-16.0)
[2021-03-09] MEDS: NEURONTIN 300 MG PO SCH ×2 (02:23→21:37)
[2021-03-09] MEDS: ZOLOFT 50 MG TABLET PO SCH ×2 (02:24→21:37)
[2021-03-09] MEDS: Pepcid 20 MG PO SCH ×2 (02:24→21:37)
[2021-03-09] MEDS: Sodium Chloride 0.9% 1000 ML 1,000 ML IV SCH ×3 (02:36→16:26)
[2021-03-09] MEDS: PHENYLEPHRINE HCL 10 MG in Dextrose 5%/Water IV Soln. 250 ML 250 ML IV PRN (02:36)
[2021-03-09 05:39] LABS: Hematocrit 28.7 % (35-47); Hemoglobin 9.2 gm/dl (12.0-16.0); Mean Corpuscular Hemoglobin 27.9 pg (26-32); Mean Corpuscular Hgb Concent. 32.1 g/dl (32-36); Mean Platelet Volume 9.6 fl (7.5-11.0); Platelet Count 324 K/mm3 (150-450); Red Cell Distribution Width 16.1 % (11.5-14.0); White Blood Count 7.4 K/mm3 (4.0-10.5)
[2021-03-09 05:50] LABS: INR 1.94 (0.8-3.0)
[2021-03-09 05:53] LABS: ANION GAP 10.8 MEQ/L (5-15); Calcium 8.5 mg/dL (8.4-10.2); Potassium 3.6 mmol/L (3.5-5.1)
[2021-03-09 05:57] LABS: PROTIME 22.9 SECONDS (9.4-12.5)
[2021-03-09 06:00] LABS: Creatinine 1 2.89 mg/dL (0.52-1.04); EST GLOMERULAR FILTRATION RATE 16.5 ML/MIN
[2021-03-09] MEDS: PROTONIX 40 MG IV*** 80 MG in Sodium Chloride 0.9% 500 ML 500 ML IV SCH ×2 (06:51→16:55)
[2021-03-09 08:51] LABS: ANISOCYTOSIS 1+; Lymphocytes 11 % (24-44); Monocyte 2 % (0.0-12.0); Neutrophils 87 % (36.0-66.0); Poikilocytosis 1+; Total Cells Counted 100
[2021-03-09 08:52] LABS: Platelet Estimate NORMAL (NORMAL); Polychromasia RARE
[2021-03-09] MEDS: Dakin's Soln FULL STRENGTH TP SCH (09:31)
[2021-03-09] MEDS: SYNTHROID 88 MCG PO SCH (09:32)
[2021-03-09] MEDS: Santyl OINTMENT TOP SCH (09:32)
[2021-03-09] MEDS: Triple Antibiotic Ointment TP SCH (09:32)
[2021-03-09] MEDS ORDERED: SODIUM HYPOCHLORITE TOP SCH (10:00)
[2021-03-09] MEDS ORDERED: LEVOTHYROXINE SODIUM 175 MCG PO SCH (10:00)
[2021-03-09] MEDS ORDERED: Miralax Powder 17GM PACKET PO PRN (14:53)
[2021-03-09] MEDS ORDERED: Vitamin K 1 MG IM ONE (17:52)
[2021-03-09] MEDS ORDERED: Vitamin K 10 MG/ML ONE (18:12)
[2021-03-09] MEDS ORDERED: Golytely Solution 4000 ML PO ONE (18:15)
--- NOTE | 2021-03-09 18:40 | PCM.HP ---
History of Present Illness - Chief Complaint Chief Complaint: Hypotension, Anemia, Elevate INR, UTI, Weakness, Acute/Chronic Renal Insuf Date: 03/08/21 History of Present Illness: is a 85 year old female. Pt. brought into ER yesterday for hypotension, and dark stools per rectum. Pt. with evaluation and found to have marked acute renal failure, elevated INR in 8+ range. bright red blood per rectum, hypotension, with marked drop in hgb from baseline. - Review of Systems Constitutional: Lethargy, Weakness Eyes: No Symptoms Ears, Nose, & Throat: No Symptoms Respiratory: No Cough, No Short Of Breath Cardiac: No Chest Pain, No Edema, No Syncope Abdominal/Gastrointestinal: Nausea, Hematochezia, Melena, Appetite Changes, No Abdominal Pain Genitourinary Symptoms: No Dysuria Musculoskeletal: No Back Pain, No Neck Pain Skin: No Rash Neurological: No Symptoms Psychological: No Symptoms Medications & Allergies Home Medications: Home Medication List Acetaminophen 325 mg [Tylenol 325 mg] 650 mg PO Q4H PRN PRN 03/07/21 [History Confirmed 03/07/21] Albuterol/Ipratropium 3ml Neb* [DUONEB 0.5-3 MG/3 ml Neb] 3 ml IH Q6H PRN PRN 03/07/21 [History Confirmed 03/07/21] Atorvastatin Calcium [Lipitor] 20 mg PO HS 03/07/21 [History Confirmed 03/08/21] Collagenase Oint [Santyl OINTMENT] 1 gm TOP DAILY 03/07/21 [History Confirmed 03/08/21] Docusate Sodium 100 mg [Colace 100 MG] 100 mg PO BIDPRN PRN 03/07/21 [History Confirmed 03/08/21] Famotidine [Pepcid] 40 mg PO HS 03/07/21 [History Confirmed 03/08/21] Furosemide 40 mg [Lasix 40 MG] 40 mg PO BID 03/07/21 [History Confirmed 03/08/21] Gabapentin 300 mg [Neurontin 300 mg] 300 mg PO HS 03/07/21 [History Confirmed 03/08/21] Levothyroxine Sodium 175 mcg PO DAILY 03/07/21 [History Confirmed 03/08/21] Lisinopril 5 mg [Zestril 5 MG] 5 mg PO DAILY 03/07/21 [History Confirmed 03/08/21] Metoprolol Succinate 25 mg Xl* [Toprol-Xl 25MG Tablets] 25 mg PO BID 03/07/21 [History Confirmed 03/08/21] Neomy Sulf/Bacitra/Polymyxin * [Triple Antibiotic Ointment] 1 gm TOP DAILY 03/07/21 [History Confirmed 03/08/21] Sertraline HCl 25 mg PO HS 03/07/21 [History Confirmed 03/08/21] Sodium Hypochlorite [Dakin's] 1 applic TOP DAILY 03/07/21 [History Confirmed 03/08/21] Sulfamethoxazole/Trimethoprim [Sulfamethoxazole-Tmp Ds Tablet] 1 each PO BID 03/07/21 [History Confirmed 03/08/21] Warfarin Sodium 2 mg PO DAILY 03/07/21 [History Confirmed 03/08/21] dilTIAZem HCL [Diltiazem 24Hr ER (Xr)] 240 mg PO DAILY 03/07/21 [History Confirmed 03/08/21] polyethylene glycoL 3350 [Gavilax] 17 gm PO DAILY PRN PRN 03/07/21 [History Confirmed 03/07/21] Allergies/Adverse Reactions: Allergies Allergy/AdvReac Type Severity Reaction Status Date / Time orlistat Allergy Unknown Verified 03/08/21 00:51 pentazocine Allergy Unknown Verified 03/08/21 00:51 tolmetin Allergy Unknown Verified 03/08/21 00:51 - Past Medical History Past Medical History: Yes Neurological History: No Pertinent History ENT History: No Pertinent History Cardiac History: Congestive Heart Failure, Coronary Artery Disease, Hypertension Respiratory History: CHF, Pneumonia Endocrine Medical History: Diabetes Type II, Hypothyroidism Musculoskelatal History: No Pertinent History GI Medical History: GERD History: No Pertinent History Pyscho-Social History: No Pertinent History Reproductive Disorders: No Pertinent History Comment: afib, cardiomegaly - Past Surgical History Past Surgical History: Yes Neuro Surgical History: No Pertinent History Cardiac History: No Pertinent History Respiratory Surgery: No Pertinent History GI Surgical History: No Pertinent History Genitourinary Surgical Hx: No Pertinent History Musculskeletal Surgical Hx: Joint Replacement, Orthopedic Surgery Female Surgical History: Hysterectomy Other Surgical History: HIP RPLECED, KNEE REPLACED - Social History Smoking Status: Former smoker Exposure to second hand smoke: No Alcohol: None Drug Use: none - Physical Exam Vital Signs: Vital Signs - 24 hr Temp Pulse Resp BP BP Pulse Ox 03/09/21 17:22 98 03/09/21 16:00 97.5 F 95 H 17 128/62 98 03/09/21 14:00 88 22 129/56 98 03/09/21 12:00 97.2 F 67 17 122/58 94 L 03/09/21 10:00 97.5 F 89 19 125/56 92 L 03/09/21 08:00 97.3 F 54 L 13 127/60 100 03/09/21 06:49 97.5 F 91 H 15 125/52 100 03/09/21 06:00 97.7 F 80 14 95/50 98 03/09/21 05:00 77 17 116/57 98 03/09/21 04:00 97.3 F 79 19 111/56 100 03/09/21 03:00 81 14 112/49 100 03/09/21 02:00 97.7 F 82 18 112/69 95 03/09/21 01:00 97.3 F 86 15 122/62 99 03/09/21 00:05 97.5 F 85 14 88/47 98 03/09/21 00:00 97.5 F 85 16 89/52 99 03/08/21 23:50 97.7 F 99 H 19 102/54 98 03/08/21 23:20 97.4 F 101 H 21 95/48 96 03/08/21 23:00 97.7 F 97 H 20 137/114 98 03/08/21 22:00 97.3 F 91 H 20 110/45 93 L 03/08/21 21:00 97.5 F 87 19 101/60 100 03/08/21 20:15 96 03/08/21 20:00 97.5 F 92 H 20 101/60 93 L 03/08/21 19:00 97.7 F 87 16 100/45 99 General Appearance: no apparent distress, lethargy Eye Exam: eyes nml inspection Ears, Nose, Throat Exam: normal ENT inspection, pharynx normal, dry mucous membranes Neck Exam: normal inspection Respiratory Exam: normal breath sounds, lungs clear, No chest tenderness Cardiovascular Exam: irregular Gastrointestinal/Abdomen Exam: soft, normal bowel sounds, No tenderness, No distention Pelvic Exam: not done Rectal Exam: deferred Back Exam: normal inspection Extremity Exam: normal inspection, pelvis stable Results - Labs Lab/Micro Results: Lab Results-Last 24 Hours 03/08/21 03/08/21 03/09/21 Range/Units 17:30 21:00 01:35 WBC (4.0-10.5) K/mm3 RBC (4.1-5.4) M/mm3 Hgb 7.9 L 9.5 L D (12.0-16.0) gm/dl Hct 24.3 L 29.7 L (35-47) % MCV (78-100) fl MCH (26-32) pg MCHC (32-36) g/dl RDW (11.5-14.0) % Plt Count (150-450) K/mm3 MPV (7.5-11.0) fl Segmented Neutrophils (36.0-66.0) % Lymphocytes (Manual) (24-44) % Monocytes (Manual) (0.0-12.0) % Platelet Estimate (NORMAL) RBC Morphology Polychromasia Poikilocytosis Anisocytosis PT (9.4-12.5) SECONDS INR (0.8-3.0) Sodium (137-145) mmol/L Potassium (3.5-5.1) mmol/L Chloride (98-107) mmol/L Carbon Dioxide (22-30) mmol/L Anion Gap (5-15) MEQ/L BUN (7-17) mg/dL Creatinine (0.52-1.04) mg/dL Estimated GFR ML/MIN Glucose (74-106) mg/dL Calcium (8.4-10.2) mg/dL Crossmatch COMPATIBLE (COMPATIBLE) 03/09/21 03/09/21 03/09/21 Range/Units 04:31 04:31 04:31 WBC 7.4 (4.0-10.5) K/mm3 RBC 3.30 L (4.1-5.4) M/mm3 Hgb 9.2 L (12.0-16.0) gm/dl Hct 28.7 L (35-47) % MCV 87.0 (78-100) fl MCH 27.9 (26-32) pg MCHC 32.1 (32-36) g/dl RDW 16.1 H (11.5-14.0) % Plt Count 324 (150-450) K/mm3 MPV 9.6 (7.5-11.0) fl Segmented Neutrophils 87 H (36.0-66.0) % Lymphocytes (Manual) 11 L (24-44) % Monocytes (Manual) 2 (0.0-12.0) % Platelet Estimate NORMAL (NORMAL) RBC Morphology ABNORMAL Polychromasia RARE Poikilocytosis 1+ Anisocytosis 1+ PT 22.9 H (9.4-12.5) SECONDS INR 1.94 D (0.8-3.0) Sodium 127 L (137-145) mmol/L Potassium 3.6 (3.5-5.1) mmol/L Chloride 100 (98-107) mmol/L Carbon Dioxide 19 L (22-30) mmol/L Anion Gap 10.8 (5-15) MEQ/L BUN 79 H (7-17) mg/dL Creatinine 2.89 H (0.52-1.04) mg/dL Estimated GFR 16.5 ML/MIN Glucose 136 H (74-106) mg/dL Calcium 8.5 (8.4-10.2) mg/dL Crossmatch (COMPATIBLE) Microbiology 03/07/21 21:25 Urine Culture - Final Urine, Catheterized <10K NORMAL SKIN HUNTER PROBABLE SKIN CONTAMINANT Assessment/Plan (1) Acute on chronic renal insufficiency Current Visit: Yes Status: Acute Assessment & Plan: aggressive judicious fluid replacement Code(s): N28.9 - DISORDER OF KIDNEY AND URETER, UNSPECIFIED; N18.9 - CHRONIC KIDNEY DISEASE, UNSPECIFIED (2) Elevated INR Current Visit: Yes Status: Acute Assessment & Plan: vitamin K, FFP Code(s): R79.1 - ABNORMAL COAGULATION PROFILE (3) Hypotension Current Visit: Yes Status: Acute Assessment & Plan: fluids and pressors to maintain bp Code(s): I95.9 - HYPOTENSION, UNSPECIFIED (4) Symptomatic anemia Current Visit: Yes Status: Acute Assessment & Plan: blood products as needed Code(s): D64.9 - ANEMIA, UNSPECIFIED (5) UTI (urinary tract infection) Current Visit: Yes Status: Acute Assessment & Plan: iv abx Code(s): N39.0 - URINARY TRACT INFECTION, SITE NOT SPECIFIED (6) Weakness Current Visit: Yes Status: Acute Assessment & Plan: as above Code(s): R53.1 - WEAKNESS (7) Altered mental status Current Visit: No Status: Acute Assessment & Plan: Niece notes she has been altered since admission to [facility] a few weeks ago Code(s): R41.82 - ALTERED MENTAL STATUS, UNSPECIFIED (8) Atrial fibrillation with RVR Current Visit: No Status: Acute Assessment & Plan: moniter rate Code(s): I48.91 - UNSPECIFIED ATRIAL FIBRILLATION
[2021-03-09] MEDS: ROCEPHIN 1 Gm-D5w 50 ml Bag** 1 G/50 ML IVPB IV SCH (21:38)
[2021-03-10] MEDS: Sodium Chloride 0.9% 1000 ML 1,000 ML IV SCH ×2 (00:20→07:01)
[2021-03-10] MEDS: PROTONIX 40 MG IV*** 80 MG in Sodium Chloride 0.9% 500 ML 500 ML IV SCH (04:54)
[2021-03-10] MEDS: Zofran 4 MG/2 ML VIAL IV PRN ×2 (05:01→22:34)
[2021-03-10 05:59] LABS: Hematocrit 27.3 % (35-47); Hemoglobin 8.9 gm/dl (12.0-16.0); Mean Cell Volume 86.9 fl (78-100); Mean Corpuscular Hemoglobin 28.3 pg (26-32); Mean Corpuscular Hgb Concent. 32.6 g/dl (32-36); Mean Platelet Volume 9.3 fl (7.5-11.0); Platelet Count 289 K/mm3 (150-450); Red Blood Count 3.14 M/mm3 (4.1-5.4); Red Cell Distribution Width 16.2 % (11.5-14.0); White Blood Count 6.6 K/mm3 (4.0-10.5)
[2021-03-10 06:20] LABS: INR 1.22 (0.8-3.0); PROTIME 14.4 SECONDS (9.4-12.5)
[2021-03-10 06:23] LABS: PTT 31.1 SECONDS (25.1-36.5)
[2021-03-10 06:29] LABS: Calcium 8.6 mg/dL (8.4-10.2); Potassium 3.1 mmol/L (3.5-5.1)
[2021-03-10 06:43] LABS: ANION GAP 10.6 MEQ/L (5-15); Creatinine 1 1.48 mg/dL (0.52-1.04); EST GLOMERULAR FILTRATION RATE 35.7 ML/MIN
[2021-03-10] MEDS ORDERED: Cardizem IV 50 MG/10 ML IV ONE (08:42)
[2021-03-10] MEDS ORDERED: POTASSIUM CHLORIDE 20 mEq IN WATER 100ML 20 MEQ/100 ML BAG IV ONE (08:43)
[2021-03-10] MEDS ORDERED: Lasix 20 MG/2 ML IV ONE ×2 (09:00→11:00)
[2021-03-10] MEDS ORDERED: Lasix 40 MG/4 ML IV SCH (09:15)
--- NOTE | 2021-03-10 09:18 | CONS ---
CONSULT DATE: 03/09/2021 HISTORY: An 85 year-old patient apparently had been at [facility] in the past. She has multiple medical problems. She had atrial fibrillation and has been on Coumadin and Cardizem. She has diabetes, hypothyroidism, hypertension, coronary artery disease. She initially had some dark stools. Her INR was greater than 8. Apparently they gave her some plasma. She had hemoglobin in the 7 range. Her INR is down to 1.9 or so at this time. She denies any abdominal pain. She actually wanted to eat and go back. PAST MEDICAL HISTORY: Diabetes, hypothyroidism, hypertension, coronary artery disease. PAST SURGICAL HISTORY: Hysterectomy. She has had hip replacement in the past. HOME MEDICATIONS: She was on warfarin, Bactrim, gabapentin, calcium, iron, folic acid, ascorbic acid, vitamin E and C. ALLERGIES: ORLISTAT. PENTAZOCINE. TOLMETIN. SOCIAL HISTORY: Former smoker. REVIEW OF SYSTEMS: Fourteen systems reviewed pertinent for as noted above. No chest pain or palpitations. No nausea or vomiting currently. PHYSICAL EXAMINATION: GENERAL: A chronically ill female. HEENT: Sclera nonicteric. NECK: No JVD. CHEST: Equal excursion, nonlabored breathing. CVS: Regular rate and rhythm. ABDOMEN: Soft, nontender. No guarding. No peritoneal sign. EXTREMITIES: No cyanosis. NEURO: Alert, oriented. PSYCH: Appropriate mood and affect. IMPRESSION: History of anticoagulation toxicity, had GI bleed of unclear etiology. She said her last endoscopy was five years or more ago. Discussed options of EGD and colonoscopy while she is here in the hospital, bowel prep, general risk of bleeding or infection, risk of bowel injury or perforation possibly requiring open procedure, risk of missed or nondiagnosis or incomplete exam possibly requiring other studies but not limited to. She is agreeable during this admission. She understands she will need to take a bowel prep. I checked with the office. Dr. Donahue is going to be by here in the afternoon and said he would be willing to consider this. If something happens and he is not available, I could possibly do it later in the evening. The patient agrees to the plan of EGD and colonoscopy for GI bleeding tomorrow.
[2021-03-10] MEDS ORDERED: Klor Con 10 MEQ PO SCH (09:30)
[2021-03-10] MEDS ORDERED: DILTIAZEM HCL 240 MG PO SCH (10:00)
[2021-03-10] MEDS ORDERED: Sodium Chloride 0.9% W/ 20 mEq KCl/LITER 1,000 ML IV SCH (10:30)
[2021-03-10] MEDS: PROTONIX 40 MG IV IV SCH ×2 (10:50→21:22)
[2021-03-10] MEDS ORDERED: DIPRIVAN 200 MG/20 ML IV ONE (12:24)
[2021-03-10] MEDS ORDERED: Lactated Ringers 1,000 ML IV SCH (14:30)
[2021-03-10] MEDS: FEOSOL 325 MG PO SCH (15:16)
[2021-03-10] MEDS: Zestril 5 MG PO SCH (15:16)
[2021-03-10] MEDS: Cardizem CD 120 MG PO SCH (15:16)
[2021-03-10] MEDS: SYNTHROID 75 MCG PO SCH (15:17)
[2021-03-10] MEDS: Triple Antibiotic Ointment TP SCH (15:17)
[2021-03-10] MEDS: SYNTHROID 100 MCG PO SCH (15:17)
[2021-03-10] MEDS: Dakin's Soln FULL STRENGTH TP SCH (15:18)
[2021-03-10] MEDS: Santyl OINTMENT TOP SCH (15:19)
--- NOTE | 2021-03-10 15:45 | OP ---
SURGERY DATE/TIME: 03/10/2021 1250 PREOPERATIVE DIAGNOSIS: Anemia. POSTOPERATIVE DIAGNOSES: 1) The patient had basically normal upper endoscopic examination. There is a slight amount of reflux. 2) She has incidental polyps of no significance and they are not addressed at all today as they were of no significance. She has a major posterior fissure which is healing which has certainly been the cause of her recent major bleeding. PROCEDURES: 1) EGD. 2) Colonoscopy complete to cecum. SURGEON: Rogelio Donhaue M.D. ANESTHESIA: INDICATION: A patient with acute anemia. DESCRIPTION OF PROCEDURE: Taken to endoscopy. Left lateral decubitus position. Pharyngoesophageal junction normal. Esophagus normal. Gastroesophageal junction very light esophagitis grade 2. Fundus, body and antrum normal. Pylorus normal. Duodenal bulb normal. Second portion normal. Scope withdrawn looped upon itself. No hiatal hernia. Scope withdrawn. Anal digital examination satisfactory. Scope introduced. There is a major posterior fissure. It looks like there is just a trough about 1.0 inch long, nearly 0.5 inch at its base and nearly 0.25 inch thick. It is healing in mucosal lining at this time but it has certainly been source of the bleeding. The scope is advanced to the base of the cecum. Base of the cecum, ileocecal valve was normal. There were a few scattered small polyps over this area which were of no significance today. Circumferential withdrawal. No bleeding was present in the right colon, transverse colon or the rest of the colon. Bleeding site was certainly localized to the anorectal area. Findings discussed with the daughter in the waiting room.
[2021-03-10] MEDS: Lasix 40 MG PO SCH (17:26)
[2021-03-10] MEDS: Pepcid 20 MG PO SCH (21:22)
[2021-03-10] MEDS: Zocor 10MG PO SCH (21:22)
[2021-03-10] MEDS: NEURONTIN 300 MG PO SCH (21:22)
[2021-03-10] MEDS: Toprol-Xl 25MG Tablets PO SCH (21:22)
[2021-03-10] MEDS: ZOLOFT 50 MG TABLET PO SCH (21:22)
[2021-03-10] MEDS: ROCEPHIN 1 Gm-D5w 50 ml Bag** 1 G/50 ML IVPB IV SCH (21:25)
[2021-03-10] MEDS ORDERED: NON-FORMULARY ITEM (Atorvastatin Calcium [Lipitor] 20 MG) PO SCH (22:00)
[2021-03-11 05:02] LABS: Hematocrit 28.6 % (35-47); Hemoglobin 9.1 gm/dl (12.0-16.0); Mean Cell Volume 89.1 fl (78-100); Mean Corpuscular Hemoglobin 28.3 pg (26-32); Mean Corpuscular Hgb Concent. 31.8 g/dl (32-36); Mean Platelet Volume 9.1 fl (7.5-11.0); Platelet Count 303 K/mm3 (150-450); Red Blood Count 3.21 M/mm3 (4.1-5.4); Red Cell Distribution Width 16.2 % (11.5-14.0); White Blood Count 8.7 K/mm3 (4.0-10.5)
[2021-03-11 05:24] LABS: ANION GAP 9.7 MEQ/L (5-15); BLOOD UREA NITROGEN 28 mg/dL (7-17); CHLORIDE 109 mmol/L (98-107); Carbon Dioxide 22 mmol/L (22-30); Creatinine 1 0.81 mg/dL (0.52-1.04); EST GLOMERULAR FILTRATION RATE > 60.0 ML/MIN; Glucose 134 mg/dL (74-106); Potassium 3.5 mmol/L (3.5-5.1); SODIUM 137 mmol/L (137-145)
[2021-03-11] MEDS ORDERED: Lasix 40 MG/4 ML IV ONE (08:09)
[2021-03-11] MEDS ORDERED: Sodium Chloride 0.9% 10 ML FLUSH Syringe IV PRN (08:45)
--- NOTE | 2021-03-11 08:46 | XRAY ---
Indication: GI bleed. Comparison: February 12, 2021. Portable chest remains underinflated with increasing right base subsegmental atelectasis/scarring and increasing left base infiltrate/atelectasis/effusion. Heart remains enlarged. Remaining chest unchanged.
[2021-03-11] MEDS ORDERED: Klor Con 10 MEQ PO SCH (09:00)
[2021-03-11] MEDS: Cardizem CD 120 MG PO SCH (10:03)
[2021-03-11] MEDS: SYNTHROID 100 MCG PO SCH (10:04)
[2021-03-11] MEDS: Toprol-Xl 25MG Tablets PO SCH ×2 (10:04→21:52)
[2021-03-11] MEDS: Lasix 40 MG PO SCH ×2 (10:04→17:37)
[2021-03-11] MEDS: SYNTHROID 75 MCG PO SCH (10:04)
[2021-03-11] MEDS: Zestril 5 MG PO SCH (10:04)
[2021-03-11] MEDS: PROTONIX 40 MG IV IV SCH (10:05)
[2021-03-11] MEDS: FEOSOL 325 MG PO SCH (10:05)
[2021-03-11] MEDS: Santyl OINTMENT TOP SCH (10:06)
[2021-03-11] MEDS: Triple Antibiotic Ointment TP SCH (10:12)
[2021-03-11] MEDS: Dakin's Soln FULL STRENGTH TP SCH (10:12)
[2021-03-11] MEDS ORDERED: Sodium Chloride 0.9% 10 ML FLUSH Syringe IV SCH (14:00)
[2021-03-11] MEDS: Lasix 40 MG/4 ML IV ONE ×2 (15:59→17:24)
[2021-03-11] MEDS ORDERED: Lasix 40 MG PO ONE (17:30)
[2021-03-11] MEDS ORDERED: ZOFRAN ODT 4 MG PO PRN (17:34)
[2021-03-11] MEDS: NEURONTIN 300 MG PO SCH (21:52)
[2021-03-11] MEDS: Zocor 10MG PO SCH (21:52)
[2021-03-11] MEDS: ZOLOFT 50 MG TABLET PO SCH (21:52)
[2021-03-11] MEDS: Pepcid 20 MG PO SCH (21:53)
[2021-03-11] MEDS: Klor Con 10 MEQ PO SCH (21:53)
[2021-03-11] MEDS: KEFLEX 500 MG PO SCH (21:56)
[2021-03-11] MEDS: Protonix 40MG Tablet PO SCH (21:56)
[2021-03-12 05:49] LABS: Hematocrit 28.4 % (35-47); Mean Cell Volume 89.3 fl (78-100); Mean Corpuscular Hemoglobin 28.3 pg (26-32); Mean Corpuscular Hgb Concent. 31.7 g/dl (32-36); Platelet Count 331 K/mm3 (150-450); Red Blood Count 3.18 M/mm3 (4.1-5.4); Red Cell Distribution Width 15.9 % (11.5-14.0); White Blood Count 9.4 K/mm3 (4.0-10.5)
[2021-03-12 06:21] LABS: ANION GAP 10.9 MEQ/L (5-15); BLOOD UREA NITROGEN 18 mg/dL (7-17); CHLORIDE 107 mmol/L (98-107); Calcium 9.2 mg/dL (8.4-10.2); Carbon Dioxide 27 mmol/L (22-30); Creatinine 1 0.65 mg/dL (0.52-1.04); EST GLOMERULAR FILTRATION RATE > 60.0 ML/MIN; Glucose 152 mg/dL (74-106); Potassium 3.7 mmol/L (3.5-5.1); SODIUM 142 mmol/L (137-145)
--- NOTE | 2021-03-12 08:15 | PCM.DS ---
Discharge Summary Date of Admission: 03/08/21 06:59 Admitting Physician: ANNE SILVA Consults: Consults on Case 03/09/21 09:15 Consult Cardiology ROUTINE Consult Surgery ROUTINE Primary Care Provider: ANTON Allergies Allergies orlistat Allergy (Unknown, Verified 03/08/21 00:51) pentazocine Allergy (Unknown, Verified 03/08/21 00:51) tolmetin Allergy (Unknown, Verified 03/08/21 00:51) Hospital Summary - Hospital Course Hospital Course: patient was admitted with upper GI bleed, elevated INR and has now been stable. bp is stable, h/h stable currently and no signs of bleeding. INR has normalized, she has also been treated for volume overload. she is code status SCO, doing well currently and will return to [place] today. she has a history of a fib but risk of recurrent bleed makes anticoagulation contraindicated - Vitals & Intake/Output Vital Signs: Vital Signs Temperature 97.3 F 03/12/21 04:00 Pulse Rate 83 03/12/21 04:00 Respiratory Rate 22 03/12/21 04:00 Blood Pressure 146/72 03/12/21 04:00 O2 Sat by Pulse Oximetry 99 03/12/21 07:00 Intake & Output: Intake & Output 03/09/21 03/10/21 03/11/21 03/12/21 11:59 11:59 11:59 11:59 Intake Total 8532 8667 3708 120 Output Total 2400 2450 3975 2950 Balance 6104 4766 -912 -3502 Weight 66.7 kg 66.7 kg 70.6 kg 70.6 kg - Lab Result Diagrams: 03/12/21 04:45 03/12/21 04:45 Lab Results-Last 24 Hrs: Lab Results-Last 24 Hours 03/12/21 03/12/21 Range/Units 04:45 04:45 WBC 9.4 (4.0-10.5) K/mm3 RBC 3.18 L (4.1-5.4) M/mm3 Hgb 9.0 L (12.0-16.0) gm/dl Hct 28.4 L (35-47) % MCV 89.3 (78-100) fl MCH 28.3 (26-32) pg MCHC 31.7 L (32-36) g/dl RDW 15.9 H (11.5-14.0) % Plt Count 331 (150-450) K/mm3 MPV 9.0 (7.5-11.0) fl Sodium 142 (137-145) mmol/L Potassium 3.7 (3.5-5.1) mmol/L Chloride 107 (98-107) mmol/L Carbon Dioxide 27 (22-30) mmol/L Anion Gap 10.9 (5-15) MEQ/L BUN 18 H (7-17) mg/dL Creatinine 0.65 (0.52-1.04) mg/dL Estimated GFR > 60.0 ML/MIN Glucose 152 H (74-106) mg/dL Calcium 9.2 (8.4-10.2) mg/dL Micro Results-Entire Visit: Microbiology 03/07/21 21:25 Urine Culture - Final Urine, Catheterized <10K NORMAL SKIN HUNTER PROBABLE SKIN CONTAMINANT - Radiology Exams Ordered Rad Exams-Entire Visit: Radiology Procedures Category Date Time Status CHEST 1 VIEW (PORTABLE) Routine Exams 03/11/21 06:00 Completed - Procedures and Test Procedures and Tests throughout Hospitalization: Therapy Orders & Screens 03/08/21 03:34 Oxygen NASAL CANNULA 2 lpm Comment: Diagnosis: Hypotension, Anemia, Elevate INR, UTI, Weakness, Acute/Chronic Re nal Insuf 03/09/21 09:20 PT Eval & Treat ( Order) ONCE Reason for Eval:: strengthening Diagnosis: Hypotension, Anemia, Elevate INR, UTI, Weakness, Acute/Chronic Renal Insuf Discharge Exam General Appearance: no apparent distress, other (frail, chronically ill appearing) Neurologic Exam: alert Respiratory Exam: lungs clear Cardiovascular Exam: normal heart sounds, irregular Gastrointestinal/Abdomen Exam: soft, No tenderness, No mass Skin Exam: normal color, warm, dry Final Diagnosis/Problem List - Final Discharge Diagnosis/Problem (1) Upper GI bleed Current Visit: Yes Status: Acute Code(s): K92.2 - GASTROINTESTINAL HEMORRHAGE, UNSPECIFIED (2) A-fib Current Visit: Yes Status: Acute Code(s): I48.91 - UNSPECIFIED ATRIAL FIBRILLATION (3) CHF (congestive heart failure) Current Visit: Yes Status: Acute Code(s): I50.9 - HEART FAILURE, UNSPECIFIED (4) Acute on chronic renal insufficiency Current Visit: Yes Status: Acute Code(s): N28.9 - DISORDER OF KIDNEY AND URETER, UNSPECIFIED; N18.9 - CHRONIC KIDNEY DISEASE, UNSPECIFIED - Discharge Disposition: Skilled Care @ [facility] Condition: Fair Prescriptions: New Cephalexin Mh 500 mg [Keflex 500 mg] 500 mg PO TID #21 Potassium Chloride 10 Meq Tab* [Klor Con 10 MEQ] 20 meq PO BID #60 tab PANTOPRAZOLE 40 mg Tablet [Protonix 40MG Tablet] 40 mg PO BID #60 tab Continue Furosemide 40 mg [Lasix 40 MG] 40 mg PO BID Sertraline HCl 25 mg PO HS Lisinopril 5 mg [Zestril 5 MG] 5 mg PO DAILY Atorvastatin Calcium [Lipitor] 20 mg PO HS Acetaminophen 325 mg [Tylenol 325 mg] 650 mg PO Q4H PRN PRN PRN Reason: Mild To Moderate Pain Albuterol/Ipratropium 3ml Neb* [DUONEB 0.5-3 MG/3 ml Neb] 3 ml IH Q6H PRN PRN PRN Reason: Shortness Of Breath/Wheezing polyethylene glycoL 3350 [Gavilax] 17 gm PO DAILY PRN PRN PRN Reason: Constipation Metoprolol Succinate 25 mg Xl* [Toprol-Xl 25MG Tablets] 25 mg PO BID Docusate Sodium 100 mg [Colace 100 MG] 100 mg PO BIDPRN PRN PRN Reason: Constipation Neomy Sulf/Bacitra/Polymyxin * [Triple Antibiotic Ointment] 1 gm TOP DAILY Gabapentin 300 mg [Neurontin 300 mg] 300 mg PO HS Levothyroxine Sodium 175 mcg PO DAILY Sodium Hypochlorite [Dakin's] 1 applic TOP DAILY Collagenase Oint [Santyl OINTMENT] 1 gm TOP DAILY dilTIAZem HCL [Diltiazem 24Hr ER (Xr)] 240 mg PO DAILY Discontinued Warfarin Sodium 2 mg PO DAILY Sulfamethoxazole/Trimethoprim [Sulfamethoxazole-Tmp Ds Tablet] 1 each PO BID Famotidine [Pepcid] 40 mg PO HS Additional Instructions: [phone] Follow up with: ANNE SILVA MD [ACTIVE STAFF] - SIMEON CAMARILLO [ACTIVE STAFF] -
[2021-03-12] MEDS: Cardizem CD 120 MG PO SCH (10:02)
[2021-03-12] MEDS: Klor Con 10 MEQ PO SCH (10:02)
[2021-03-12] MEDS: SYNTHROID 100 MCG PO SCH (10:02)
[2021-03-12] MEDS: FEOSOL 325 MG PO SCH (10:02)
[2021-03-12] MEDS: KEFLEX 500 MG PO SCH (10:02)
[2021-03-12] MEDS: Zestril 5 MG PO SCH (10:02)
[2021-03-12] MEDS: Toprol-Xl 25MG Tablets PO SCH (10:03)
[2021-03-12] MEDS: Santyl OINTMENT TOP SCH (10:03)
[2021-03-12] MEDS: Lasix 40 MG PO SCH (10:03)
[2021-03-12] MEDS: SYNTHROID 75 MCG PO SCH (10:03)
[2021-03-12] MEDS: Protonix 40MG Tablet PO SCH (10:03)
[2021-03-12] MEDS: Triple Antibiotic Ointment TP SCH (10:04)
[2021-03-12] MEDS: Dakin's Soln FULL STRENGTH TP SCH (10:05)
[2021-03-12 10:20] VITALS: BP 122/82; PULSE 91; O2SAT 97
[2021-03-12] MEDS ORDERED: Toprol Xl 50 MG PO ONE (23:00)
== END 2021-03-12 11:58 | DRG 378 ==
LOC: ED 19:52 → MED SURG 23:50 → OBSVTOIN 03-08 06:59 → ICU 03-08 06:59 → MED SURG 03-11 14:11
PROVIDERS: ADMIT Family Medicine; ATTEND Family Medicine
PROC: 0DJ08ZZ Inspection of Upper Intestinal Tract, Via Natural or Artificial Opening Endoscopic (ICD-10-PCS; principal; 2021-03-10)
PROC: 0DJD8ZZ Inspection of Lower Intestinal Tract, Via Natural or Artificial Opening Endoscopic (ICD-10-PCS; 2021-03-10)
DX: K92.2 Gastrointestinal hemorrhage, unspecified (principal); I13.0 Hypertensive heart and chronic kidney disease with heart failure and stage 1 through stage 4 chronic kidney disease, or unspecified chronic kidney disease; N39.0 Urinary tract infection, site not specified; D64.9 Anemia, unspecified; R53.1 Weakness; E11.22 Type 2 diabetes mellitus with diabetic chronic kidney disease; N18.9 Chronic kidney disease, unspecified; I50.9 Heart failure, unspecified; I95.9 Hypotension, unspecified; I48.91 Unspecified atrial fibrillation; R41.82 Altered mental status, unspecified; K60.2 Anal fissure, unspecified; K63.5 Polyp of colon; R79.1 Abnormal coagulation profile; Z79.899 Other long term (current) drug therapy; Z79.01 Long term (current) use of anticoagulants; E03.9 Hypothyroidism, unspecified; Z20.822 Contact with and (suspected) exposure to COVID-19
CPT/HCPCS: 36000; 36415; 36430; 43235; 45378; 71045; 80048; 80053; 81001; 83605; 84132; 85014; 85018; 85025; 85027; 85610; 85730; 86850; 86900; 86901; 86922; 87086; 93005; 93268; 94760; 94762; 96372; 97161; 99285; 99291; P9016; P9017; U0003; 99100; J0696; J1265; J1940; J2354; J2370; J2405; J2704; J3430; J3480; A9270-GY; J3590-GY